=== PATIENT | male | born 1960 | race Caucasian/White ===

== ENCOUNTER 2018-03-01 19:17 | Observation (INO) ==
[2018-03-01] MEDS ORDERED: Aspirin 81 MG TAB.CHEW PO ONE (19:34)
[2018-03-01] MEDS ORDERED: *HR* Metoprolol 5 MG/5 ML VIAL IVP PRN (19:36)
--- NOTE | 2018-03-01 19:40 | Emergency Department Note ---
Disposition Clinical Impression: Atrial fibrillation with RVR, Hyperglycemia, Lung nodule Hypertension Qualifiers: Hypertension type: unspecified Qualified Code(s): I10 - Essential (primary) hypertension Disposition: Admitted As Inpatient Condition: Fair Referrals: Clarisse Amaya CNP [Primary Care Provider] - Forms: ED Satisfaction Letter Time of Disposition: 20:23 General Adult HPI - General Chief complaint: ED Chest Pain Stated complaint: chest pain luzmaria Time Seen by Provider: 03/01/18 19:22 Source: patient Mode of arrival: ambulatory Limitations: no limitations Nursing Notes Reviewed: Yes Vital Signs Reviewed: Yes - History of Present Illness HPI Narrative: 57-year-old male with history of hypertension presents for evaluation of heart palpitations. Patient's initial chief complaint said chest pain and shortness of breath however the patient denies any chest pain on my examination. Patient states he has been living with a sinus infection over the past 2 weeks. Patient states that he woke up this morning and did note some fluttering palpitations in his chest. Called his primary care doctor who told him not to go to work. Patient did go to work where his heart was noted to be in the 140s. Patient denies any syncope, chest pain or dyspnea. Patient denies any nausea vomiting or diaphoresis. Denies any history of prior heart attacks. States he does take blood pressure medications with no changes in the said medications. Patient states he does not take any blood thinners. Patient states he did have an irregular heart rhythm and palpitations in 2016 but does not recall any specific diagnosis of A. fib. Pain Scale: 2 - Related Data Home Medications Medication Instructions Recorded Confirmed Amlodipine Besylate/Benazepril 1 cap PO DAILY 03/01/18 03/01/18 [Lotrel 10-40 mg Capsule] Aspirin [Lo-Dose Aspirin EC] 81 mg PO DAILY 03/01/18 03/01/18 Atorvastatin [Lipitor] 40 mg PO HS 03/01/18 03/01/18 cloNIDine HCl [CloNIDine HCl] 0.1 mg PO BID 03/01/18 03/01/18 Allergies Allergy/AdvReac Type Severity Reaction Status Date / Time No Known Allergies Allergy Verified 03/01/18 19:19 All systems ED: reviewed and negative except as stated. Constitutional: Denies: fever Cardiovascular: Reports: palpitations. Denies: chest pain Respiratory: Denies: cough, dyspnea Gastrointestinal: Denies: abdominal pain, nausea, vomiting Past Medical History - Past Medical History Source: patient Medical history: Reports: atrial fibrillation, hyperlipidemia, hypertension Psychiatric history: Reports: no psych history - Social History Smoking Status: Never smoker Smokeless Tobacco Status: No Alcohol use: Reports: occasionally Drug use: Reports: none Physical Exam - General Limitations: no limitations General appearance: alert, in no apparent distress, obese - Head Head exam: atraumatic, normocephalic, normal inspection - Eye Eye exam: Present: normal appearance, PERRL, EOMI - ENT ENT exam: normal exam, normal oropharynx, mucous membranes moist - Neck Neck exam: Present: normal inspection - Chest Chest inspection: Present: normal inspection, symmetric chest wall rise - Respiratory Respiratory exam: Present: normal lung sounds bilaterally. Absent: respiratory distress - Cardiovascular Cardiovascular exam: Present: tachycardia, irregular rhythm. Absent: systolic murmur - Abdominal Exam Abdominal exam: Present: soft, Non-Tender - Extremities Exam Extremities exam: Present: normal inspection. Absent: pedal edema - Expanded Lower Extremity Exam Neurovascular/Tendon exam: Present: normal capillary refill - Back Exam Back exam: Present: normal inspection - Neurological Exam Neurological exam: Present: alert, CN II-XII intact - Skin Skin exam: Present: warm, dry, intact, normal color Course Course Narrative: Patient seen and examined. Patient appears to be in no acute distress. Patient does have A. fib RVR. Patient will get basic labs including a troponin as well as a chest x-ray. Initially heart rate control with Lopressor. Disposition will likely be admission for A. fib RVR. - Reevaluation(s) Reevaluation #1: Patient seen and examined. Patient's heart responded following 1 dose of Lopressor. Patient's blood pressure also improved. Patient's labs discussed at bedside. Patient does have mild elevations glucose. Patient's agreeable with admission. Time: 20:22 Reevaluation #2: Patient was updated on the XR findings and disposition. Patient family states that he has a known lung nodule that is classified as a granuloma. Time: 20:29 Vital Signs Temperature 98.2 F 03/01/18 19:19 Pulse Rate 112 03/01/18 19:19 Respiratory Rate 19 03/01/18 19:19 Blood Pressure 190/132 03/01/18 19:19 O2 Sat by Pulse Oximetry 98 03/01/18 19:19 Temperature 98.2 F 03/01/18 19:19 Pulse Rate 123 03/01/18 19:47 Respiratory Rate 20 03/01/18 19:47 Blood Pressure 165/109 03/01/18 19:47 O2 Sat by Pulse Oximetry 96 03/01/18 19:47 Oxygen Delivery Oxygen Delivery Room Air Medical Decision Making - MDM Narrative Medical decision making narrative: Patient presented for palpitations and some generalized fatigue. Denying any chest pain or dyspnea. Patient's chief complaint that was entered with chest pain and shortness of breath over the patient denied that on multiple occasions during the ED course. Patient had A. fib RVR with rates in the 140s upon arrival. Patient is also hypertensive. Patient heart rate was controlled with beta blockers. Patient was given a PO metoprolol following IV in the ED. Patient's Chads Vasc 1 and was given an ASA. Patient was noted to have menstrual finding of a lung nodule on chest x-ray. Additional testing with a CT with contrast will be obtained since there is no prior imaging for comparison. Patient does have a history of smoking in the remote past in his 20s. Patient's labs are clinically unremarkable. Mild elevation in glucose. Patient was not counseled on appropriate glycemic control weight loss and exercise. Patient will be admitted to the hospital service for continued cardiopulmonary evaluation and workup for his new onset A. fib. - Lab Data Lab results reviewed: Yes I reviewed the patient's lab results. Result diagrams: 03/01/18 19:36 03/01/18 19:36 Lab Results 03/01/18 03/01/18 03/01/18 Range/Units 19:36 19:36 19:36 WBC 8.1 (4.3-11.1) K/mcL RBC 5.70 H (4.19-5.50) M/mcL Hgb 16.5 (12.9-16.9) g/dL Hct 47.7 (37.5-50.1) % MCV 83.7 (83.0-100.0) fL MCH 28.9 (28.0-33.3) pg MCHC 34.6 (31.6-35.5) g/dL RDW 12.7 (11.5-14.5) % Plt Count 202 (140-400) K/mcL MPV 9.8 (9.4-12.4) fL Immature Gran % 0.2 (0-4) % Seg Neutrophils % 60.3 % Lymphocytes % 30.6 % Monocytes % 6.2 % Eosinophils % 2.5 % Basophils % 0.2 % Neutrophils # 4.9 (1.6-8.9) K/mcL Lymphocytes # 2.5 (0.6-4.6) K/mcL Monocytes # 0.5 (0.0-1.3) K/mcL Eosinophils # 0.2 (0.0-0.6) K/mcL Basophils # 0.0 (0.0-0.2) K/mcL Sodium 141 (136-145) mEq/L Potassium 3.8 (3.5-5.1) mEq/L Chloride 108 H (98-107) mEq/L Carbon Dioxide 22 L (23-29) mEq/L BUN 22 H (6-20) mg/dL Creatinine 1.15 (0.70-1.30) mg/dL Est GFR ( Amer) > 60 (> 60) Est GFR (Non-Af Amer) > 60 (> 60) BUN/Creatinine Ratio 19 (6-26) Glucose 130 H (70-105) mg/dL Calculated Osmolality 297 (280-300) Calcium 9.3 (8.6-10.3) mg/dL Phosphorus (2.7-4.5) mg/dL Magnesium (1.6-2.6) mg/dL Troponin I 0.03 (< 0.04) ng/mL B-Natriuretic Peptide 91 (Less than 100) pg/mL 03/01/18 Range/Units 19:36 WBC (4.3-11.1) K/mcL RBC (4.19-5.50) M/mcL Hgb (12.9-16.9) g/dL Hct (37.5-50.1) % MCV (83.0-100.0) fL MCH (28.0-33.3) pg MCHC (31.6-35.5) g/dL RDW (11.5-14.5) % Plt Count (140-400) K/mcL MPV (9.4-12.4) fL Immature Gran % (0-4) % Seg Neutrophils % % Lymphocytes % % Monocytes % % Eosinophils % % Basophils % % Neutrophils # (1.6-8.9) K/mcL Lymphocytes # (0.6-4.6) K/mcL Monocytes # (0.0-1.3) K/mcL Eosinophils # (0.0-0.6) K/mcL Basophils # (0.0-0.2) K/mcL Sodium (136-145) mEq/L Potassium (3.5-5.1) mEq/L Chloride (98-107) mEq/L Carbon Dioxide (23-29) mEq/L BUN (6-20) mg/dL Creatinine (0.70-1.30) mg/dL Est GFR ( Amer) (> 60) Est GFR (Non-Af Amer) (> 60) BUN/Creatinine Ratio (6-26) Glucose (70-105) mg/dL Calculated Osmolality (280-300) Calcium (8.6-10.3) mg/dL Phosphorus 3.2 (2.7-4.5) mg/dL Magnesium 2.1 (1.6-2.6) mg/dL Troponin I (< 0.04) ng/mL B-Natriuretic Peptide (Less than 100) pg/mL - Radiology Data Radiology results reviewed: Yes I reviewed the patient's radiology results. Chest X-Ray 03/01/18 19:34 IMPRESSION: Nodule within the right midlung which is not definitely calcified. Since no old examinations are available for comparison, evaluation with chest CT is recommended. Otherwise, no acute abnormality identified. D/ / Aly Villanueva MD / Aly Villanueva MD Interpreting Provider: Aly Villanueva MD - EKG Data EKG #1 EKG attestation: Yes I reviewed and interpreted this EKG. Rate: tachycardia Rhythm: A.Fib Her[place]ster/QRS: left axis deviation T wave inversions noted in: aVR When compared to previous EKG there are: previous EKG unavailable Interpretation: other (A. fib RVR)
[2018-03-01] MEDS ORDERED: *HR* Metoprolol 5 MG/5 ML VIAL IVP ONE (19:46)
[2018-03-01 19:48] LABS: Basophils % 0.2 %; Eosinophils # 0.2 K/mcL (0.0-0.6); Eosinophils % 2.5 %; Hematocrit 47.7 % (37.5-50.1); Hemoglobin 16.5 g/dL (12.9-16.9); Immature Granulocytes % 0.2 % (0-4); Lymphocytes # 2.5 K/mcL (0.6-4.6); Lymphocytes % 30.6 %; Mean Corpuscular HGB Conc 34.6 g/dL (31.6-35.5); Mean Corpuscular Hemoglobin 28.9 pg (28.0-33.3); Mean Corpuscular Volume 83.7 fL (83.0-100.0); Mean Platelet Volume 9.8 fL (9.4-12.4); Monocytes # 0.5 K/mcL (0.0-1.3); Monocytes % 6.2 %; Neutrophils # 4.9 K/mcL (1.6-8.9); Platelet Count 202 K/mcL (140-400); Red Cell Distribution Width 12.7 % (11.5-14.5); Segmented Neutrophils % 60.3 %
[2018-03-01] MEDS ORDERED: 0.9 % Sodium Chloride 1,000 ML IVC STA (20:06)
[2018-03-01 20:08] LABS: Magnesium 2.1 mg/dL (1.6-2.6); Phosphorous 3.2 mg/dL (2.7-4.5)
--- NOTE | 2018-03-01 20:09 | Emergency Department Note ---
Disposition Clinical Impression: Atrial fibrillation with RVR, Hyperglycemia, Lung nodule Hypertension Qualifiers: Hypertension type: unspecified Qualified Code(s): I10 - Essential (primary) hypertension Disposition: Admitted As Inpatient Condition: Fair General Adult HPI - General Chief complaint: ED Chest Pain Stated complaint: chest pain luzmaria Time Seen by Provider: 03/01/18 19:22 Source: patient Mode of arrival: ambulatory Limitations: no limitations Nursing Notes Reviewed: Yes Vital Signs Reviewed: Yes - History of Present Illness Pain Scale: 2 - Related Data Home Medications Medication Instructions Recorded Confirmed Amlodipine Besylate/Benazepril 1 cap PO DAILY 03/01/18 03/01/18 [Lotrel 10-40 mg Capsule] Aspirin [Lo-Dose Aspirin EC] 81 mg PO DAILY 03/01/18 03/01/18 Atorvastatin [Lipitor] 40 mg PO HS 03/01/18 03/01/18 RX: cloNIDine HCl [CloNIDine HCl] 0.1 mg PO BID 03/01/18 03/01/18 Allergies Allergy/AdvReac Type Severity Reaction Status Date / Time No Known Allergies Allergy Verified 03/01/18 19:19 Constitutional: Denies: fever Cardiovascular: Reports: palpitations. Denies: chest pain Respiratory: Denies: cough, dyspnea Gastrointestinal: Denies: abdominal pain, nausea, vomiting Past Medical History - Past Medical History Medical history: Reports: atrial fibrillation, hyperlipidemia, hypertension Psychiatric history: Reports: no psych history - Social History Smoking Status: Never smoker Smokeless Tobacco Status: No Alcohol use: Reports: occasionally Drug use: Reports: none Physical Exam - General Limitations: no limitations General appearance: alert, in no apparent distress, obese Course Vital Signs Temperature 98.2 F 03/01/18 19:19 Pulse Rate 112 03/01/18 19:19 Respiratory Rate 19 03/01/18 19:19 Blood Pressure 190/132 03/01/18 19:19 O2 Sat by Pulse Oximetry 98 03/01/18 19:19 Temperature 98.2 F 03/01/18 19:19 Pulse Rate 94 03/01/18 20:51 Respiratory Rate 20 03/01/18 20:51 Blood Pressure 152/99 03/01/18 20:51 O2 Sat by Pulse Oximetry 97 03/01/18 20:51 Oxygen Delivery Oxygen Delivery Room Air Medical Decision Making - Lab Data Result diagrams: 03/01/18 19:36 03/01/18 19:36 Lab Results 03/01/18 03/01/18 03/01/18 Range/Units 19:36 19:36 19:36 WBC 8.1 (4.3-11.1) K/mcL RBC 5.70 H (4.19-5.50) M/mcL Hgb 16.5 (12.9-16.9) g/dL Hct 47.7 (37.5-50.1) % MCV 83.7 (83.0-100.0) fL MCH 28.9 (28.0-33.3) pg MCHC 34.6 (31.6-35.5) g/dL RDW 12.7 (11.5-14.5) % Plt Count 202 (140-400) K/mcL MPV 9.8 (9.4-12.4) fL Immature Gran % 0.2 (0-4) % Seg Neutrophils % 60.3 % Lymphocytes % 30.6 % Monocytes % 6.2 % Eosinophils % 2.5 % Basophils % 0.2 % Neutrophils # 4.9 (1.6-8.9) K/mcL Lymphocytes # 2.5 (0.6-4.6) K/mcL Monocytes # 0.5 (0.0-1.3) K/mcL Eosinophils # 0.2 (0.0-0.6) K/mcL Basophils # 0.0 (0.0-0.2) K/mcL Sodium 141 (136-145) mEq/L Potassium 3.8 (3.5-5.1) mEq/L Chloride 108 H (98-107) mEq/L Carbon Dioxide 22 L (23-29) mEq/L BUN 22 H (6-20) mg/dL Creatinine 1.15 (0.70-1.30) mg/dL Est GFR ( Amer) > 60 (> 60) Est GFR (Non-Af Amer) > 60 (> 60) BUN/Creatinine Ratio 19 (6-26) Glucose 130 H (70-105) mg/dL Calculated Osmolality 297 (280-300) Calcium 9.3 (8.6-10.3) mg/dL Phosphorus (2.7-4.5) mg/dL Magnesium (1.6-2.6) mg/dL Troponin I 0.03 (< 0.04) ng/mL B-Natriuretic Peptide 91 (Less than 100) pg/mL TSH 1.450 (0.340-5.600) mcIU/mL 03/01/18 Range/Units 19:36 WBC (4.3-11.1) K/mcL RBC (4.19-5.50) M/mcL Hgb (12.9-16.9) g/dL Hct (37.5-50.1) % MCV (83.0-100.0) fL MCH (28.0-33.3) pg MCHC (31.6-35.5) g/dL RDW (11.5-14.5) % Plt Count (140-400) K/mcL MPV (9.4-12.4) fL Immature Gran % (0-4) % Seg Neutrophils % % Lymphocytes % % Monocytes % % Eosinophils % % Basophils % % Neutrophils # (1.6-8.9) K/mcL Lymphocytes # (0.6-4.6) K/mcL Monocytes # (0.0-1.3) K/mcL Eosinophils # (0.0-0.6) K/mcL Basophils # (0.0-0.2) K/mcL Sodium (136-145) mEq/L Potassium (3.5-5.1) mEq/L Chloride (98-107) mEq/L Carbon Dioxide (23-29) mEq/L BUN (6-20) mg/dL Creatinine (0.70-1.30) mg/dL Est GFR ( Amer) (> 60) Est GFR (Non-Af Amer) (> 60) BUN/Creatinine Ratio (6-26) Glucose (70-105) mg/dL Calculated Osmolality (280-300) Calcium (8.6-10.3) mg/dL Phosphorus 3.2 (2.7-4.5) mg/dL Magnesium 2.1 (1.6-2.6) mg/dL Troponin I (< 0.04) ng/mL B-Natriuretic Peptide (Less than 100) pg/mL TSH (0.340-5.600) mcIU/mL Attestation Statement - Attestation Attestation: Resident Attestation: I examined this patient and my medical decision making was reviewed with the Resident Physician. I agree with the documented findings, disposition and treatment plan as described except to the extent set forth below. We independently had [id number] contact with the patient. Resident Physician Dr. Clovis Myers Please see resident note for further details and disposition. Patient with past medical history of hypertension, previous paroxysmal A. fib in 2016 the lasted for approximately 2 days. Patient was unable to get in cardiology for the follow-up symptoms had already resolved. The patient has not had any issues with this until earlier today. Patient was noted to have an irregular rhythm. Has palpitations in his chest as if his heart is beating irregular. The patient was scheduled for follow-up on Tuesday for further evaluation of this. The patient was told not to go to work. He went to work and was feeling fatigued with worsening palpitations. Presents emergency department with a heart rate greater than 120. Blood pressure greater than 190. The patient has had a recent sinus infection with associated sinus congestion. Patient denies chest pressure. Triage note of dyspnea without any patient c omplaints of dyspnea. No exertional symptoms. The patient will undergo further evaluation of what is considered new-onset A. fib given the two-year gap in history from the last episode that only last for several days was not previously evaluated. Patient will undergo rate control with both fluids as well as beta blockers. Patient will likely require admission for further evaluation. Awake alert and oriented 3, no acute distress, heart irregular rate and rhythm, lungs clear to auscultation bilaterally, +1 pitting edema to the lower extremities to the mid calf.
[2018-03-01 20:12] LABS: BUN/Creatinine Ratio 19 (6-26); Blood Urea Nitrogen 22 mg/dL (6-20); Calcium 9.3 mg/dL (8.6-10.3); Carbon Dioxide 22 mEq/L (23-29); Chloride 108 mEq/L (98-107); Glucose 130 mg/dL (70-105); Osmolality,Calculated 297 (280-300); Potassium 3.8 mEq/L (3.5-5.1); Sodium 141 mEq/L (136-145); eGFR For Non-African Americans > 60 (> 60)
[2018-03-01 20:13] LABS: Troponin I 0.03 ng/mL (< 0.04)
[2018-03-01] MEDS ORDERED: Isovue-370 500 ML INFUS..BTL IV ONE (20:24)
[2018-03-02] MEDS ORDERED: *HR* Heparin 5,000 UNIT/ML VIAL IVP ONE (00:23)
[2018-03-02] MEDS ORDERED: *HR* Heparin 5,000 UNIT/ML VIAL IVP PRN ×2 (00:23→21:00)
[2018-03-02] MEDS ORDERED: Acetaminophen 325 MG TABLET PO PRN (00:23)
[2018-03-02] MEDS ORDERED: Dextrose Gel 15 GM/37.5 ML TUBE PO PRN ×2 (00:23)
[2018-03-02] MEDS ORDERED: *HR* Dextrose 50 % in Water (Syg) 50 ML SYRINGE IVP PRN (00:23)
[2018-03-02] MEDS ORDERED: Naloxone 0.4 MG/ML INJ IVP PRN (00:23)
[2018-03-02] MEDS ORDERED: D5% in Water 1,000 ML IVC PRN (00:23)
[2018-03-02] MEDS ORDERED: Heparin 25,000 UNIT/500 ML D5W 25,000 UNIT/500 ML BAG IVC SCH (00:30)
--- NOTE | 2018-03-02 00:39 | Internal Med History&Physical ---
Date of Encounter: 03/01/18 Time of Encounter: 23:35 Internal Medicine - H&P: HPI Chief complaint: palpitations Admitted From: Emergency Dept Plans for Post Hospital Care: Home History of present illness: Mr. Shannon is a 57 year old male who presents with complaints of palpitations and irregular heartbeat. He was having sinusitis problems and was due to start antibiotics today as well as [id number] cold medication/decongestants. He saw his PCP today who recommended he not go to work and start taking his medi cations. However, he went to work nonetheless. He was having worsening symptoms at work, and he was referred to ER by friends and family. He did not take his amoxicillin and/or sinus cold medicine. In the ER, he was noted to have atrial fibrillation with rapid ventricular response. He was given a dose of IV Lopressor with rate control. He was therefore admitted to hospitalist service. Given his favorable response to metoprolol, I asked the ER physician to administer a low-dose one-time oral metoprolol dose this evening. Upon my assessment of the patient, he remains rate controlled and denies any chest pain, shortness of breath, palpitations, or diaphoresis. Upon further questioning, he states he has had similar symptoms before several years ago was never formally diagnosed with atrial fibrillation. He was due to see a runstitching machine operator as an outpatient. However, by time he saw the runstitching machine operator, he was back in normal rhythm. I suspect based upon history that he likely has had par oxysmal atrial fibrillation. Upon further questioning of his and daughter, patient does snore and expresses some concern that he may have sleep apnea. He has never been formally diagnosed with sleep apnea. He does not smoke, does not drink alcohol, and he does not drink excessive caffeine. He denies illicit drug use. Family history is pertinent for atrial fibrillation, however. He also has a history of borderline diabetes/prediabetic state. Past Med Surg Social Fam HX - Past Medical History Attestation: Yes The following information was validated with the patient. Source: patient, obtained from family Medical history: hyperlipidemia, hypertension Psychiatric history: no psych history - Past Surgical History Surgical History: orthopedic, other Additional surgical history: left Knee scope - Social History Smoking Status: Never smoker Smokeless Tobacco Status: No Alcohol use: occasionally Drug use: none Occupational status: employed Current living situation: Home, With Family Activity Level: Very active Recent Out of Country Travel Within the Last 8 Weeks: No - Family History Mother Hx Family Cardiac Disorders: Yes (AFIB) Sister Hx Family Cardiac Disorders: Yes (AFIB) - Additional Family History Additional family history: + FH atrial fibrillation Internal Medicine - H&P: Meds Amlodipine Besylate/Benazepril [Lotrel 10-40 mg Capsule] 1 cap PO DAILY 03/01/18 [History] Aspirin [Lo-Dose Aspirin EC] 81 mg PO DAILY 03/01/18 [History] Atorvastatin [Lipitor] 40 mg PO HS 03/01/18 [History] cloNIDine HCl [CloNIDine HCl] 0.1 mg PO BID 03/01/18 [History] Allergy/AdvReac Type Severity Reaction Status Date / Time No Known Allergies Allergy Verified 03/01/18 19:19 - Constitutional Constitutional: no chills, no fever(s), no malaise - EENT Eyes: no blurry vision, no change in vision Ears: no ear pain, no tinnitus Nose, mouth and throat: nasal congestion, sinus pain, sinus pressure, no sore throat - Cardiovascular Cardiovascular ROS IM: irregular heart rhythm, palpitations, no chest pain, no diaphoresis, no dyspnea, no dyspnea on exertion, no lightheadedness, no paroxysmal nocturnal dyspnea, no syncope - Respiratory Respiratory: cough, no hemoptysis, no chest congestion, no excessive phlegm production, no change in phlegm color - Gastrointestinal Gastrointestinal: no abdominal pain, no diarrhea, no hematemesis, no hematochezia, no melena, no nausea, no vomiting - Genitourinary Genitourinary ROS male: no dysuria, no flank pain, no hematuria - Musculoskeletal Musculoskeletal ROS IM: no arthralgias, no back pain - Integumentary Integumentary IM: no rash, no jaundice - Neurological Neurological ROS: no disequilibrium, no dizziness, no focal weakness, no frequent falls, no headache(s) - Psychiatric Psychiatric: no anxiety, no depression - Endocrine Endocrine IM: no polydipsia, no polyuria - Allergic/Immunologic Allergic/Immunologic: no wheezing, no GI upset with certain foods - Constitutional Vitals: Temp Pulse Resp BP Pulse Ox 98.1 F 84 16 145/98 95 03/01/18 22:29 03/01/18 22:29 03/01/18 22:29 03/01/18 22:29 03/01/18 22:29 General appearance: Present: cooperative, A&O X 3, pleasant, no acute distress, answers questions appropriately Exam: see below - Head Head exam: Present: normal inspection - Eye Eye exam: Present: EOMI, PERRL. Absent: scleral icterus Pupils: Present: normal accommodation - ENT ENT exam: Present: mucous membranes dry, normal exam, normal oropharynx - Neck Neck exam general surgery: Present: full ROM, supple. Absent: tenderness, nuchal rigidity, thyromegaly - Respiratory Respiratory exam: Present: CTAB. Absent: chest wall tenderness, rales, rhonchi, wheezes - Cardiovascular Cardiovascular exam: Present: irregular rhythm, +S1, +S2. Absent: diastolic murmur, systolic murmur - GI/Abdominal GI/Abdominal exam: Present: normal bowel sounds, soft. Absent: guarding, hepatomegaly, mass, rebound, splenomegaly, tenderness - Extremities Exam Extremities exam: Present: normal capillary refill, warm, radial pulses palpable and symmetrical. Absent: calf tenderness, pedal edema, tenderness - Back Exam Back exam: Present: normal inspection. Absent: CVA tenderness (L), CVA tenderness (R) - Neurological Exam Neurological exam: Present: alert, CN II-XII intact, oriented X3, no focal deficits - Psychiatric Psychiatric exam: Present: normal affect, normal mood - Skin Skin exam: Present: dry, intact, warm Internal Med - H&P Results - Labs CBC & Chem 7: 03/01/18 19:36 03/01/18 19:36 Labs: Short CBC 03/01/18 Range/Units 19:36 WBC 8.1 (4.3-11.1) K/mcL Hgb 16.5 (12.9-16.9) g/dL Hct 47.7 (37.5-50.1) % Plt Count 202 (140-400) K/mcL Neutrophils # 4.9 (1.6-8.9) K/mcL BMP 03/01/18 19:36 Sodium 141 Potassium 3.8 Chloride 108 H Carbon Dioxide 22 L BUN 22 H Creatinine 1.15 Glucose 130 H Calcium 9.3 Cardiac Enzymes 03/01/18 Range/Units 19:36 Troponin I 0.03 (< 0.04) ng/mL - EKG Data -: EKG Interpreted by Myself - EKG Data Prior EKG available for review: no EKG comments: 03/02/18 00:43 atrial fibrillation w RVR - Impressions ITS Impressions Chest X-Ray 03/01/18 19:34 IMPRESSION: Nodule within the right midlung which is not definitely calcified. Since no old examinations are available for comparison, evaluation with chest CT is recommended. Otherwise, no acute abnormality identified. D/ / Aly Villanueva MD / Aly Villanueva MD Interpreting Provider: Aly Villanueva MD Chest CT 03/01/18 20:24 IMPRESSION: Calcified granulomas without suspicious nodule or acute process. D/ / Arturo Mccullough MD / Arturo Mccullough MD Interpreting Provider: Arturo Mccullough MD - Diagnostic Studies CT scan - chest Status: image reviewed by me (calcified granulomas/negative) - Assessment and plan (1) Atrial fibrillation with RVR Current Visit: Yes Status: Acute Assessment and plan: 1. Will continue oral Metoprolol scheduled BID and monitor on telemetry -- patient currently rate controlled. 2. Will order ECHO, trend troponins, monitor on telemetry, and check TSH. 3. Consult cardiology as he may be candidate for cardioversion. 4. Will start heparin drip per ACS protocol. 5. Patient will need stress test or LHC in the near future to rule out CAD. 6. Patient will also need outpatient sleep study to rule out FAHEEM. (2) Sinusitis Current Visit: Yes Status: Acute Assessment and plan: 1. Will start Amoxicillin as originally prescribed by PCP. 2. Avoid decongestants given new atrial fibrillation. Qualifiers: Sinusitis location: maxillary Chronicity: subacute Qualified Code(s): J01.00 - Acute maxillary sinusitis, unspecified (3) Hyperglycemia Current Visit: Yes Status: Acute Assessment and plan: 1. Will place on SSI and monitor glucose. 2. Will order A1C. 3. Patient may need oral diabetic agents at discharge. (4) Hypertension Current Visit: Yes Status: Chronic Assessment and plan: 1. Continue home meds as appropriate. 2. Monitor BP and adjust meds/dosing as necessary. Qualifiers: Hypertension type: essential hypertension Qualified Code(s): I10 - Essential (primary) hypertension (5) DVT prophylaxis Current Visit: Yes Status: Acute Assessment and plan: 1. Heparin drip per ACS protocol.
[2018-03-02 01:19] LABS: Basophils % 0.5 %; Eosinophils # 0.2 K/mcL (0.0-0.6); Eosinophils % 2.6 %; Hematocrit 45.7 % (37.5-50.1); Immature Granulocytes % 0.3 % (0-4); Lymphocytes # 2.8 K/mcL (0.6-4.6); Lymphocytes % 31.4 %; Mean Corpuscular Hemoglobin 29.3 pg (28.0-33.3); Mean Corpuscular Volume 83.5 fL (83.0-100.0); Monocytes # 0.5 K/mcL (0.0-1.3); Neutrophils # 5.2 K/mcL (1.6-8.9); Platelet Count 190 K/mcL (140-400); Red Blood Count 5.47 M/mcL (4.19-5.50); Red Cell Distribution Width 12.9 % (11.5-14.5); Segmented Neutrophils % 59.2 %
[2018-03-02 01:26] LABS: Prothrombin Time 10.8 Seconds (9.4-12.1)
[2018-03-02 01:27] LABS: Heparin anti-factor XA UFH 0.05 IU/mL (0.30-0.70)
[2018-03-02] MEDS: Amoxicillin 500 MG CAPSULE PO SCH ×4 (01:31→21:13)
[2018-03-02 01:38] LABS: Alanine Aminotransferase 25 Units/L (7-52); Albumin 4.2 g/dL (3.5-5.7); Albumin/Globulin Ratio 1.7 (1.1-2.2); Alkaline Phosphatase 89 Units/L (34-104); Aspartate Amino Transferase 18 Units/L (13-39); BUN/Creatinine Ratio 17 (6-26); Bilirubin,Total 0.7 mg/dL (0.3-1.0); Blood Urea Nitrogen 16 mg/dL (6-20); Calcium 8.9 mg/dL (8.6-10.3); Carbon Dioxide 22 mEq/L (23-29); Chloride 109 mEq/L (98-107); Chol/HDL Ratio 4.8 (0-4.9); Cholesterol 169 mg/dL (< 200); Globulin 2.5 g/dL (2.4-3.5); Glucose 136 mg/dL (70-105); HDL Cholesterol 35 mg/dL (40-59); LDL Cholesterol,Calculated 92 mg/dL (0-99); Magnesium 2.1 mg/dL (1.6-2.6); Osmolality,Calculated 297 (280-300); Potassium 3.6 mEq/L (3.5-5.1); Sodium 142 mEq/L (136-145); Total Protein 6.7 g/dL (6.4-8.9); Triglycerides 210 mg/dL (< 150); eGFR For Non-African Americans > 60 (> 60)
[2018-03-02 02:54] LABS: Estimated Average Glucose 146 mg/dl; Hemoglobin A1C 6.7 %
[2018-03-02] MEDS: amLODIPine 5 MG TABLET PO SCH (07:40)
[2018-03-02] MEDS: Lisinopril 20 MG TABLET PO SCH (07:40)
[2018-03-02] MEDS: Insulin LISPRO 300 UNITS/3 ML VIAL SQ SCH ×3 (07:41→16:06)
[2018-03-02] MEDS: Aspirin Enteric Coated 81 MG Tablet PO SCH (07:41)
[2018-03-02] MEDS: *HR* Heparin 5,000 UNIT/ML VIAL IVP PRN ×2 (07:48→14:12)
--- NOTE | 2018-03-02 12:07 | Cardiology Consult Note ---
<Jerry Kohler R - Last Filed: 03/02/18 12:01> Date of Encounter: 03/02/18 Time of Encounter: 12:02 Assessment and Plan (1) Atrial fibrillation with RVR Current Visit: Yes Status: Acute New diagnosis of A-Fib, although based on hx and symptoms, possible occurrence in the past. On Lopressor 12.5mg BID. AVG HR 92. HR at bedside is 90s-100s. Will increase Lopressor to 25mg BID. [id number] is 2--HTN and based on HGBA1C of 6.7, new diagnosis of DM. Currently on heparin gtt. Will brown check NOAC. TTE resulted--LVEF 60%. Normal right ventricular structure and function. Mild mitral regurgitation. No pulmonary hypertension. K, Mag, TSH WNL. Suspect underlying FAHEEM. Recommend outpt sleep study. Will discuss and review with Dr. Au for further recs. Discussion w patient/family: The assessment and plan as outlined above was discussed with the patient and/or family members who expressed understanding and agreement. All questions were answered. Thank you for involving us in the care of your patient. Please call with any questions. I will discuss all the above with Dr. Au and make changes as necessary. History of Present Illness Consult date: 03/02/18 Requesting physician: Jayy Black Consult reason: A-Fib Chief complaint: palpitations History of present illness: Mr. Shannon is a 57 year old male with PMH HTN, preDM and HLD that presents with complaints of palpitations. He has sinusitis and started antibiotics yesterday as well as [id number] cold medication/decongestants. In the ED he was found to be in A-Fib RVR He was given a dose of IV Lopressor with rate control. He denies any chest pain, shortness of breath, palpitations, or diaphoresis. He states he has had similar symptoms in 2016, never formally diagnosed with atrial fibrillation. Family history is pertinent for atrial fibrillation. Past Med Surg Social Fam HX - Past Medical History Medical history: hyperlipidemia, hypertension Psychiatric history: no psych history - Past Surgical History Surgical History: orthopedic, other Additional surgical history: left Knee scope - Social History Smoking Status: Never smoker Smokeless Tobacco Status: No Alcohol use: occasionally Drug use: none - Family History Mother Hx Family Cardiac Disorders: Yes (AFIB) Sister Hx Family Cardiac Disorders: Yes (AFIB) Medications and Allergies Amlodipine Besylate/Benazepril [Lotrel 10-40 mg Capsule] 1 cap PO DAILY 03/01/18 [History] Aspirin [Lo-Dose Aspirin EC] 81 mg PO DAILY 03/01/18 [History] Atorvastatin [Lipitor] 40 mg PO HS 03/01/18 [History] cloNIDine HCl [CloNIDine HCl] 0.1 mg PO BID 03/01/18 [History] Allergy/AdvReac Type Severity Reaction Status Date / Time No Known Allergies Allergy Verified 03/01/18 19:19 All Systems Review: The remainder of the systems were reviewed and are negative - Cardiovascular Cardiovascular: as per HPI, palpitations Physical Examination Vital Signs Temp Pulse Resp BP Pulse Ox 03/02/18 07:59 94 03/02/18 06:57 97.7 F 58 16 142/95 94 03/01/18 22:29 98.1 F 84 16 145/98 95 03/01/18 20:51 94 20 152/99 97 03/01/18 19:47 123 20 165/109 96 03/01/18 19:19 98.2 F 112 19 190/132 98 Intake and Output 03/01/18 03/02/18 03/02/18 23:59 07:59 15:59 Intake Total 50 / 50 Output Total 0 / 0 Balance 50 / 50 Intake: IV Fluids 50 / 50 Heparin 25,000 UNIT/500 ML D5W 50 / 50 25,000 unit In 500 ml @ 8.5 UNIT/KG/HR 20.222 mls/hr IVC . Q24H [facility] Rx#:[id number] Output: Urine 0 / 0 Other: Weight 118.955 kg Blood Glucose* 144 143 163 General: Conversant, No Apparent Distress HEENT: Atraumatic, Normocephaly, Mucus Membranes Moist Neck: No JVD, Normal carotid pulses Cardiac: Other (irregularly irregular rhythm) Lungs: Normal Breath Sounds, No Wheeze, Rales, Rhonchi Neuro: Alert and responsive, No focal deficits noted Abdomen: Soft, Non-Tender Skin: No rashes noted on visualized skin Musculoskeletal: No Chest Wall Tenderness Extremities: No Clubbing, No Cyanosis, No Edema, Normal Pulses Results 03/02/18 00:48 03/02/18 00:48 Lab Results 03/01/18 03/01/18 03/01/18 19:36 19:36 19:36 WBC 8.1 Hgb 16.5 Hct 47.7 Plt Count 202 INR Sodium 141 Potassium 3.8 Chloride 108 H Carbon Dioxide 22 L BUN 22 H Creatinine 1.15 Glucose 130 H Calcium 9.3 Magnesium Total Bilirubin AST ALT Alkaline Phosphatase Troponin I 0.03 B-Natriuretic Peptide 91 TSH 1.450 03/01/18 03/02/18 03/02/18 19:36 00:48 00:48 WBC Hgb Hct Plt Count INR 1.0 Sodium Potassium Chloride Carbon Dioxide BUN Creatinine Glucose Calcium Magnesium 2.1 Total Bilirubin AST ALT Alkaline Phosphatase Troponin I < 0.03 B-Natriuretic Peptide TSH 03/02/18 03/02/18 03/02/18 00:48 00:48 06:48 WBC 8.8 Hgb 16.0 Hct 45.7 Plt Count 190 INR Sodium 142 Potassium 3.6 Chloride 109 H Carbon Dioxide 22 L BUN 16 Creatinine 0.94 Glucose 136 H Calcium 8.9 Magnesium 2.1 Total Bilirubin 0.7 AST 18 ALT 25 Alkaline Phosphatase 89 Troponin I < 0.03 B-Natriuretic Peptide TSH Impressions Chest X-Ray 03/01/18 19:34 IMPRESSION: Nodule within the right midlung which is not definitely calcified. Since no old examinations are available for comparison, evaluation with chest CT is recommended. Otherwise, no acute abnormality identified. D/ / Aly Villanueva MD / Aly Villanueva MD Interpreting Provider: Aly Villanueva MD Chest CT 03/01/18 20:24 IMPRESSION: Calcified granulomas without suspicious nodule or acute process. D/ / Arturo Mccullough MD / Arturo Mccullough MD Interpreting Provider: Arturo Mccullough MD Echocardiogram 03/02/18 00:23 Impressions: LVEF 60%. Indeterminate diastolic function. Normal right ventricular structure and function. Mild mitral regurgitation. No pulmonary hypertension. Left Ventricular Wall Motion: Rest Echo Findings All wall segments showed normal motion. Findings: Study Quality * Technically challenging due to body habitus. ECG Findings * Atrial fibrillation. Left Ventricle * LVEF 60%. * LV wall thickness measurements not well obtained. * Indeterminate diastolic function. Right Ventricle * Normal right ventricular structure and function. Left Atrium * Normal left atrial size. Right Atrium * Normal right atrial size. Mitral Valve * Normal mitral valve structure. * No mitral stenosis. * Mild mitral regurgitation. Aortic Valve * No aortic regurgitation. * Trileaflet aortic valve. * No aortic stenosis. Tricuspid Valve * Tricuspid valve not well visualized. * Trace tricuspid regurgitation. * Estimated RA pressure is 3 mmHg. Pulmonic Valve * Pulmonic valve is not well visualized. * No pulmonic stenosis. * No pulmonic regurgitation. Pulmonary Artery * Pulmonary artery not well visualized. Aorta * Normally sized aortic root. Pericardium * There is no pericardial effusion present. Interatrial Septum * No evidence of PFO by color Doppler. IVC * Normal IVC dimensions and inspiratory collapse. Active Medications Acetaminophen (Tylenol) 650 mg PO Q6HR PRN PRN Reason: Mild Pain/Fever Stop: 09/01/18 00:24 Last Admin: 03/02/18 11:34 Dose: 650 mg Amlodipine Besylate (Norvasc) 10 mg PO DAILY [facility] Stop: 09/01/18 09:01 Last Admin: 03/02/18 07:40 Dose: 10 mg Amoxicillin (Amoxil) 500 mg PO TID [facility]; Protocol Stop: 09/01/18 01:16 Last Admin: 03/02/18 07:40 Dose: 500 mg Aspirin (Aspirin Ec) 81 mg PO DAILY [facility] Stop: 09/01/18 09:01 Last Admin: 03/02/18 07:41 Dose: 81 mg Atorvastatin Calcium (Lipitor) 40 mg PO HS [facility] Stop: 09/01/18 21:01 Dextrose/Water (Dextrose 50% (Syg)) 25 ml IVP AD PRN PRN Reason: Hypoglycemia Stop: 09/01/18 00:24 Glucagon (Glucagen) 1 mg IM ONCE PRN PRN Reason: Hypoglycemia Stop: 09/01/18 00:24 Glucose (Gluctose) 15 gm PO ONCE PRN PRN Reason: Hypoglycemia Stop: 09/01/18 00:24 Glucose (Gluctose) 30 gm PO ONCE PRN PRN Reason: Hypoglycemia Stop: 09/01/18 00:24 Heparin Sodium (Porcine) (Heparin) 4,000 unit IVP Q6HR PRN PRN Reason: SEE COMMENTS Stop: 09/01/18 00:24 Heparin Sodium (Porcine) (Heparin) 2,000 unit IVP Q6H PRN PRN Reason: SEE COMMENTS Stop: 09/01/18 00:24 Last Admin: 03/02/18 07:48 Dose: 2,000 unit Dextrose (Dextrose 5%) 1,000 mls @ 100 mls/hr IVC .Q10H PRN PRN Reason: HYPOGLYCEMIA Stop: 09/01/18 00:24 Heparin Sodium/Dextrose (Heparin 25,000 Unit/500 Ml D5w) 25,000 unit in 500 mls @ 20.222 mls/hr IVC .Q24H [facility]; Protocol Stop: 09/01/18 00:31 Last Titration: 03/02/18 07:49 Dose: 10.5 unit/kg/hr, 24.981 mls/hr Insulin Human Lispro (Humalog) 0 units SQ TIDAC [facility]; Protocol Stop: 09/01/18 07:31 Last Admin: 03/02/18 11:53 Dose: 2 units Lisinopril (Zestril) 40 mg PO DAILY [facility] Stop: 09/01/18 09:01 Last Admin: 03/02/18 07:40 Dose: 40 mg Metoprolol Tartrate (Lopressor) 5 mg IVP Q5MIN PRN PRN Reason: Tachycardia HR>100 Stop: 03/03/18 19:46 Last Admin: 03/01/18 19:50 Dose: 5 mg Metoprolol Tartrate (Lopressor) 12.5 mg PO BID [facility] Stop: 09/01/18 09:01 Last Admin: 03/02/18 07:40 Dose: 12.5 mg Naloxone HCl (Narcan) 0.4 mg IVP Q2MIN PRN PRN Reason: SEE COMMENTS Stop: 09/01/18 00:24 - Imaging and Cardiology Echo: report reviewed - EKG Interpretation EKG results cardiology: personally reviewed (A-fib RVR 122.), other (12 hr tele AVG HR 92, A-Fib) Consult Discharge Plan - Plan Referrals: Clarisse Amaya, [facility] [Primary Care Provider] - <Alfredo Au - Last Filed: 03/02/18 15:29> Date of Encounter: 03/02/18 - Attending Attestation Patient was seen and evaluated independently by me. Findings, assessment and plan were discussed at length with patient, questions answered. Agree with nurse practitioner's/resident's documentation. Addition as follows, 57 yoCM ho HTN, DM, possible PAF 2 yrs ago with spontaneous conversion. P.w sinusitis followed by palpitation. Found in Afib RVR, rate ctr ok on BB. TTE EF 60%, mild MR NAD, CTA, IR, no edema Hb nl, CR nl A: PAF, RVR, C score 2 sinusitis P: rate ctr for now NOAC f/u card clinic Alfredo Au MD, PhD Assessment and Plan Discussion w patient/family: The assessment and plan as outlined above was discussed with the patient and/or family members who expressed understanding and agreement. All questions were answered. Thank you for involving us in the care of your patient. Please call with any questions. History of Present Illness History of present illness: Mr. Shannon is a 57 year old male All Systems Review: The remainder of the systems were reviewed and are negative Physical Examination Vital Signs, Last 4 Hours Pulse BP 03/02/18 13:26 71 173/97 Results 03/02/18 00:48 03/02/18 00:48 Lab Results 03/01/18 03/01/18 03/01/18 19:36 19:36 19:36 WBC 8.1 Hgb 16.5 Hct 47.7 Plt Count 202 INR Sodium 141 Potassium 3.8 Chloride 108 H Carbon Dioxide 22 L BUN 22 H Creatinine 1.15 Glucose 130 H Calcium 9.3 Magnesium Total Bilirubin AST ALT Alkaline Phosphatase Troponin I 0.03 B-Natriuretic Peptide 91 TSH 1.450 03/01/18 03/02/18 03/02/18 19:36 00:48 00:48 WBC Hgb Hct Plt Count INR 1.0 Sodium Potassium Chloride Carbon Dioxide BUN Creatinine Glucose Calcium Magnesium 2.1 Total Bilirubin AST ALT Alkaline Phosphatase Troponin I < 0.03 B-Natriuretic Peptide TSH 03/02/18 03/02/18 03/02/18 00:48 00:48 06:48 WBC 8.8 Hgb 16.0 Hct 45.7 Plt Count 190 INR Sodium 142 Potassium 3.6 Chloride 109 H Carbon Dioxide 22 L BUN 16 Creatinine 0.94 Glucose 136 H Calcium 8.9 Magnesium 2.1 Total Bilirubin 0.7 AST 18 ALT 25 Alkaline Phosphatase 89 Troponin I < 0.03 B-Natriuretic Peptide TSH
--- NOTE | 2018-03-02 12:52 | Internal Med Progress Note ---
<Parish Ogden Spencer - Last Filed: 03/02/18 12:50> Hospitalist Progress Note - Encounter Date of Encounter: 03/02/18 Time of Encounter: 07:05 - Subjective Interval History: Laying comfortably in bed. Says he feels palpitations still but less. He denies blurry vision, diplopia, dizzy/lightheadedness, chest pain, sob, diaphoresis, presyncope/syncope, or N/V. - Exam Vitals: Temp Pulse Resp BP Pulse Ox 97.7 F 58 16 142/95 94 03/02/18 06:57 03/02/18 06:57 03/02/18 06:57 03/02/18 06:57 03/02/18 07:59 Exam: General: Alert, no acute distress or signs toxicity HEENT: Atraumatic/normocephalic, EOMI, PERRL, dry mucous embranes Neck: Supple, full ROM, no lymphadenopathy Cardiac: Regular rate, irregularly irregular rhythm, S1/S2+, no murmur, heaves, thrills, appreciated. Radial pulses 2+ bilat, no edema Lungs: Normal resp effort, good air movement, CTAB, no wheezes, rhonchi, rales appreciated. Abdomen: Soft nontender, nondistended, no rebound, guarding, or rigidity. Skin: warm, dry, intact MSK: No clubbing Neuro: CN grossly intact, no focal neuro deficits Psych: Normal affect - Assessment and Plan (1) Atrial fibrillation with RVR Current Visit: Yes Status: Acute Assessment and Plan: New diagnosis of Afib. Had similar presentation in 2016 that was NSR when followed up with cards. -[id number] 2 -On heparin infusion -Checking DOAC pricing -TTE 03/02/18 EF 60%, mild MR, no PH -TSH, Mg normal, K 3.6, 40meq K today -Trop neg x2 -Likely need outpatient stress and sleep study -HR as low as 50's this morning -Cards increased metoprolol dose from 12.5mg BID to 25mg BID (2) Hypertension Current Visit: Yes Status: Chronic Assessment and Plan: -Continue home meds -BP improved, 142/95 most recent -Monitor BP and adjust meds/dosing as necessary. (3) Hyperglycemia Current Visit: Yes Status: Acute Assessment and Plan: -On SSI and monitor glucose. -A1C 6.7 -Glucose 136 today -F/u with PCP for likely oral hyperantiglycemic at il (4) Sinusitis Current Visit: Yes Status: Acute Assessment and Plan: -Continue amoxicillin as originally prescribed by PCP. -Avoid decongestants given new atrial fibrillation. DVT Prophylaxis: Heparin infusion - Time Spent with Patient Total time spent is greater than 50% in coordination of care (as documented) at patient's floor/unit and/or counseling patient: less than 15 minutes Plan of Care Discussed with: patient Internal Medicine: Result - Labs CBC & Chem 7: 03/02/18 00:48 03/02/18 00:48 Labs: Short CBC 03/01/18 03/02/18 Range/Units 19:36 00:48 WBC 8.1 8.8 (4.3-11.1) K/mcL Hgb 16.5 16.0 (12.9-16.9) g/dL Hct 47.7 45.7 (37.5-50.1) % Plt Count 202 190 (140-400) K/mcL Neutrophils # 4.9 5.2 (1.6-8.9) K/mcL BMP 03/01/18 03/02/18 19:36 00:48 Sodium 141 142 Potassium 3.8 3.6 Chloride 108 H 109 H Carbon Dioxide 22 L 22 L BUN 22 H 16 Creatinine 1.15 0.94 Glucose 130 H 136 H Calcium 9.3 8.9 Cardiac Enzymes 03/01/18 03/02/18 03/02/18 Range/Units 19:36 00:48 06:48 Troponin I 0.03 < 0.03 < 0.03 (< 0.04) ng/mL Liver Function 03/02/18 Range/Units 00:48 Total Bilirubin 0.7 (0.3-1.0) mg/dL AST 18 (13-39) Units/L ALT 25 (7-52) Units/L Alkaline Phosphatase 89 (34-104) Units/L Albumin 4.2 (3.5-5.7) g/dL - ABG Interpretation ABG results: PT/INR, D-dimer PT 10.8 Seconds (9.4-12.1) 03/02/18 00:48 - Impressions Impressions Chest X-Ray 03/01/18 19:34 IMPRESSION: Nodule within the right midlung which is not definitely calcified. Since no old examinations are available for comparison, evaluation with chest CT is recommended. Otherwise, no acute abnormality identified. D/ / Aly Villanueva MD / Aly Villanueva MD Interpreting Provider: Aly Villanueva MD Chest CT 03/01/18 20:24 IMPRESSION: Calcified granulomas without suspicious nodule or acute process. D/ / Arturo Mccullough MD / Arturo Mccullough MD Interpreting Provider: Arturo Mccullough MD Echocardiogram 03/02/18 00:23 Impressions: LVEF 60%. Indeterminate diastolic function. Normal right ventricular structure and function. Mild mitral regurgitation. No pulmonary hypertension. Left Ventricular Wall Motion: Rest Echo Findings All wall segments showed normal motion. Findings: Study Quality * Technically challenging due to body habitus. ECG Findings * Atrial fibrillation. Left Ventricle * LVEF 60%. * LV wall thickness measurements not well obtained. * Indeterminate diastolic function. Right Ventricle * Normal right ventricular structure and function. Left Atrium * Normal left atrial size. Right Atrium * Normal right atrial size. Mitral Valve * Normal mitral valve structure. * No mitral stenosis. * Mild mitral regurgitation. Aortic Valve * No aortic regurgitation. * Trileaflet aortic valve. * No aortic stenosis. Tricuspid Valve * Tricuspid valve not well visualized. * Trace tricuspid regurgitation. * Estimated RA pressure is 3 mmHg. Pulmonic Valve * Pulmonic valve is not well visualized. * No pulmonic stenosis. * No pulmonic regurgitation. Pulmonary Artery * Pulmonary artery not well visualized. Aorta * Normally sized aortic root. Pericardium * There is no pericardial effusion present. Interatrial Septum * No evidence of PFO by color Doppler. IVC * Normal IVC dimensions and inspiratory collapse. Consult Discharge Plan - Plan Referrals: Clarisse Amaya, GEOSPATIAL SPECIALIST [Primary Care Provider] - <Amber Moreno M - Last Filed: 03/02/18 15:55> Hospitalist Progress Note - Encounter Date of Encounter: 03/02/18 - Exam Vitals: Temp Pulse Resp BP Pulse Ox 97.7 F 71 16 173/97 94 03/02/18 06:57 03/02/18 13:26 03/02/18 06:57 03/02/18 13:26 03/02/18 07:59 - Assessment and Plan (1) Atrial fibrillation with RVR Current Visit: Yes Status: Acute (2) Hypertension Current Visit: Yes Status: Chronic (3) Hyperglycemia Current Visit: Yes Status: Acute (4) Sinusitis Current Visit: Yes Status: Acute - Time Spent with Patient Total time spent is greater than 50% in coordination of care (as documented) at patient's floor/unit and/or counseling patient: Internal Medicine: Result - Labs CBC & Chem 7: 03/02/18 00:48 03/02/18 00:48 Labs: Short CBC 03/01/18 03/02/18 Range/Units 19:36 00:48 WBC 8.1 8.8 (4.3-11.1) K/mcL Hgb 16.5 16.0 (12.9-16.9) g/dL Hct 47.7 45.7 (37.5-50.1) % Plt Count 202 190 (140-400) K/mcL Neutrophils # 4.9 5.2 (1.6-8.9) K/mcL BMP 03/01/18 03/02/18 19:36 00:48 Sodium 141 142 Potassium 3.8 3.6 Chloride 108 H 109 H Carbon Dioxide 22 L 22 L BUN 22 H 16 Creatinine 1.15 0.94 Glucose 130 H 136 H Calcium 9.3 8.9 Cardiac Enzymes 03/01/18 03/02/18 03/02/18 Range/Units 19:36 00:48 06:48 Troponin I 0.03 < 0.03 < 0.03 (< 0.04) ng/mL Liver Function 03/02/18 Range/Units 00:48 Total Bilirubin 0.7 (0.3-1.0) mg/dL AST 18 (13-39) Units/L ALT 25 (7-52) Units/L Alkaline Phosphatase 89 (34-104) Units/L Albumin 4.2 (3.5-5.7) g/dL - ABG Interpretation ABG results: PT/INR, D-dimer PT 10.8 Seconds (9.4-12.1) 03/02/18 00:48 - Impressions Impressions Chest X-Ray 03/01/18 19:34 IMPRESSION: Nodule within the right midlung which is not definitely calcified. Since no old examinations are available for comparison, evaluation with chest CT is recommended. Otherwise, no acute abnormality identified. D/ / Aly Villanueva MD / Aly Villanueva MD Interpreting Provider: Aly Villanueva MD Chest CT 03/01/18 20:24 IMPRESSION: Calcified granulomas without suspicious nodule or acute process. D/ / Arturo Mccullough MD / Arturo Mccullough MD Interpreting Provider: Arturo Mccullough MD Echocardiogram 03/02/18 00:23 Impressions: LVEF 60%. Indeterminate diastolic function. Normal right ventricular structure and function. Mild mitral regurgitation. No pulmonary hypertension. Left Ventricular Wall Motion: Rest Echo Findings All wall segments showed normal motion. Findings: Study Quality * Technically challenging due to body habitus. ECG Findings * Atrial fibrillation. Left Ventricle * LVEF 60%. * LV wall thickness measurements not well obtained. * Indeterminate diastolic function. Right Ventricle * Normal right ventricular structure and function. Left Atrium * Normal left atrial size. Right Atrium * Normal right atrial size. Mitral Valve * Normal mitral valve structure. * No mitral stenosis. * Mild mitral regurgitation. Aortic Valve * No aortic regurgitation. * Trileaflet aortic valve. * No aortic stenosis. Tricuspid Valve * Tricuspid valve not well visualized. * Trace tricuspid regurgitation. * Estimated RA pressure is 3 mmHg. Pulmonic Valve * Pulmonic valve is not well visualized. * No pulmonic stenosis. * No pulmonic regurgitation. Pulmonary Artery * Pulmonary artery not well visualized. Aorta * Normally sized aortic root. Pericardium * There is no pericardial effusion present. Interatrial Septum * No evidence of PFO by color Doppler. IVC * Normal IVC dimensions and inspiratory collapse. - Attending Attestation I examined this patient and my medical decision-making was reviewed with the Resident Physician Dr Ogden. I agree with the documented findings, disposition and treatment plan as described except to the extent set forth below/addl details below. Mr Shannon was admitted for treatment of new dx afib with rvr. awake, alert, no cp, + palpitions. no assoicated sob, dizziness, presyncope or syncope. + sinus pressure and pain with yellow nasal discharge. gen- alert, awake,appears stated age cv- reg rate and irreg/irreg rhythm, normal s1,s2, no murmurs appreciated, no le edema, no jvd lungs- ctabl, no wheezing, rhonchi or crackles, normal resp effort on ra abd- soft, non tender, non distended, + bs neuro- AAOx3 Afib RVR, new diagnosis, now rate controlled Afib-, chadsvasc 2-hep gtt and plan to transition to oral AC, cards following, lopressor BID and monitor HR as upper 50s this morning after am dose, brown check noac -regarding work up for cause- may be related to sinus infection, fam hx of afib, risk stratify for cad with + dm a1c 6.7, dyspilidemia on lipid panel and + obesity and htn, tsh wnl -trops neg and ekg without acute ischemic changes, TTE resulted LVEF 60%. Normal right ventricular structure and function. Mild mitral regurgitation. No pulmonary hypertension. Sinus Infection - cont oral abx, symptomatic treatment HTN, bp elevated above goal max today thus far 173/97- will require outpt fu, outpt sleep study to rule out FAHEEM, cont norvasc, lisinopril, lopressor uptitrated today, cont to monitor New dx DM, a1c 6.7- discussed with pt, SSI while inpt, he will fu with pcp upon dc to discuss lifestyle modifications vs initiation or oral agent vte ppx hep gtt <Parish Ogden - Last Filed: 03/02/18 12:50> (2) Hypertension Qualifiers: Hypertension type: essential hypertension Qualified Code(s): I10 - Essential (primary) hypertension (4) Sinusitis Qualifiers: Sinusitis location: maxillary Chronicity: subacute Qualified Code(s): J01.00 - Acute maxillary sinusitis, unspecified <Amber Moreno - Last Filed: 03/02/18 15:55> (2) Hypertension Qualifiers: Hypertension type: essential hypertension Qualified Code(s): I10 - Essential (primary) hypertension (4) Sinusitis Qualifiers: Sinusitis location: maxillary Chronicity: subacute Qualified Code(s): J01.00 - Acute maxillary sinusitis, unspecified
[2018-03-02] MEDS ORDERED: Melatonin 3 MG TABLET PO PRN (12:58)
[2018-03-02] MEDS ORDERED: Ibuprofen 600 MG TABLET PO ONE (13:37)
--- NOTE | 2018-03-02 16:17 | Event Note ---
Date of Encounter: 03/02/18 Time of Encounter: 16:13 - Cardiology Event Note TTE EF preserved, mild MR. [place] check on Eliquis 5mg BID was $35/month. Pt states this is affordable. Will start Eliquis tonight and stop heparin gtt. HR 70s-low 100s. BP 170s systolic. Will increase Lopressor to 50mg BID. Re-evaluate in AM. If rate controlled overnight, plan to sign off tomorrow with outpt EP follow-up.
--- NOTE | 2018-03-02 21:04 | Electrocardiograph Report ---
[address] [address] Test Date: 2018-03-01 Pat Name: Jamari Shannon Department: EXAM4 Room: 2A37 Gender: M Senior Database Programmer: : [id number] Requested By: Clovis Myers Order Number: [id number] Reading MD: Mackenzie Espitia Measurements Intervals [place] Rate: 122 P: [place]: QRS: -58 QRSD: 94 T: 30 QT: 320 QTc: 456 Interpretive Statements Atrial fibrillation Left anterior fascicular block Borderline ST depression, lateral leads Electronically Signed On 03-02-2018 21:03:06 EDT by Mackenzie Espitia
[2018-03-02] MEDS: Apixaban 5 MG TABLET PO SCH (21:13)
[2018-03-03 03:23] LABS: Hematocrit 52.3 % (37.5-50.1); Mean Corpuscular HGB Conc 34.2 g/dL (31.6-35.5); Mean Corpuscular Hemoglobin 28.9 pg (28.0-33.3); Mean Corpuscular Volume 84.4 fL (83.0-100.0); Mean Platelet Volume 9.6 fL (9.4-12.4); Platelet Count 226 K/mcL (140-400); Red Cell Distribution Width 12.7 % (11.5-14.5)
[2018-03-03 03:40] LABS: BUN/Creatinine Ratio 15 (6-26); Blood Urea Nitrogen 16 mg/dL (6-20); Calcium 9.3 mg/dL (8.6-10.3); Carbon Dioxide 23 mEq/L (23-29); Chloride 105 mEq/L (98-107); Glucose 144 mg/dL (70-105); Osmolality,Calculated 292 (280-300); Potassium 3.8 mEq/L (3.5-5.1); Sodium 139 mEq/L (136-145); eGFR For Non-African Americans > 60 (> 60)
[2018-03-03 03:45] LABS: Hemoglobin 17.9 g/dL (12.9-16.9)
[2018-03-03] MEDS: amLODIPine 5 MG TABLET PO SCH (08:47)
[2018-03-03] MEDS: Apixaban 5 MG TABLET PO SCH (08:47)
[2018-03-03] MEDS: Amoxicillin 500 MG CAPSULE PO SCH (08:47)
[2018-03-03] MEDS: Aspirin Enteric Coated 81 MG Tablet PO SCH (08:47)
[2018-03-03] MEDS: Lisinopril 20 MG TABLET PO SCH (08:48)
[2018-03-03] MEDS: Insulin LISPRO 300 UNITS/3 ML VIAL SQ SCH ×2 (09:04→11:41)
--- NOTE | 2018-03-03 09:20 | Discharge Summary ---
<Parish Ogden Spencer - Last Filed: 03/03/18 12:25> - NOTES TO OUTPATIENT PROVIDER Notes to Outpatient Provider: Admitted 03/01/18 with new onset Afib RVR. Metoprolol titrated up to 50mg BID at which point he is rate controlled on. PO anticoagulation started with apixaban. Will be following up with cards as outpt. Will need outpt sleep study for FAHEEM. A1C at admission 6.7%, will f/u with PCP for oral antihyperglycemics along with antihypertensive med monitoring at hi. Orders not resulted at time of discharge: Pending orders 03/02/18 06:00 ECG 12 lead ECG [ECG] AM 0600 Date of Encounter: 03/03/18 Time of Encounter: 08:00 - Discharge Diagnosis (1) Atrial fibrillation with RVR Priority: Primary Status: Acute Assessment and Plan: New diagnosis of Afib. Had similar presentation in 2016 that was NSR when followed up with cards. -[id number] -Heparin infusion transitioned to apixaban -TTE 03/02/18 EF 60%, mild MR, no PH -TSH, Mg normal, K 3.8 -Trop neg x3 -Likely need outpatient stress and sleep study -Rate controlled with metoprolol 50mg BID -Cards followup at hi (2) Hypertension Priority: Secondary Status: Chronic Assessment and Plan: -Continue home meds -BP improved, 128/75 most recent -Monitor BP and adjust meds/dosing as necessary. Qualifiers: Hypertension type: essential hypertension Qualified Code(s): I10 - Essential (primary) hypertension (3) Hyperglycemia Priority: Secondary Status: Acute Assessment and Plan: -On SSI and monitor glucose. -A1C 6.7 -Glucose 144 today -F/u with PCP for likely oral hyperantiglycemic at hi (4) Sinusitis Priority: Secondary Status: Acute Assessment and Plan: -Continue amoxicillin as originally prescribed by PCP. -Avoid decongestants given new atrial fibrillation. Qualifiers: Sinusitis location: maxillary Chronicity: subacute Qualified Code(s): J01.00 - Acute maxillary sinusitis, unspecified Hospital course: Mr. Shannon is a 57 year old male who presented with complaints of palpitations and irregular heartbeat. He was having sinusitis problems and was due to start antibiotics today as well as [id number] cold medication/decongestants. He saw his PCP today who recommended he not go to work and start taking his medications. However, he went to work nonetheless. He was having worsening symp toms at work, and he was referred to ER by friends and family. He did not take his amoxicillin and/or sinus cold medicine. In the ED, he was noted to have atrial fibrillation with rapid ventricular response. He was given a dose of IV Lopressor with rate control. He was therefore admitted to hospitalist service. He was started on heparin infusion as [id number] which transitioned to PO apixaban. Metoprolol titrated till rate controlled at 50mg BID. TTE 03/02/18 EF 60%, mild MR, no PH. TSH, Mg normal, K 3.8, trop neg x3. Was hyperglycemic in ED, A1C found to be 6.7% on no antihyperglycemics. Will need DM evaluation for antihyperglycemic needs with PCP. HTN improved with restart of home meds. Will further need outpt sleep study for probable underlying FAHEEM and cards f/u. Discharge discussed with: patient - Time Spent with Patient Total time spent providing and/or coordinating discharge services: Less than 30 minutes - Discharge Medications Prescriptions: Apixaban [Eliquis] 5 mg PO BID 30 Days #30 tablet Lisinopril [Zestril] 40 mg PO DAILY 30 Days #60 tablet Metoprolol [Lopressor] 50 mg PO BID 30 Days #60 tablet Home Medications: Amlodipine Besylate/Benazepril [Lotrel 10-40 mg Capsule] 1 cap PO DAILY 03/01/18 [History] Aspirin [Lo-Dose Aspirin EC] 81 mg PO DAILY 03/01/18 [History] Atorvastatin [Lipitor] 40 mg PO HS 03/01/18 [History] cloNIDine HCl [CloNIDine HCl] 0.1 mg PO BID 03/01/18 [History] Amoxicillin [Amoxil] 500 mg PO TID capsule 03/03/18 [Rx] Apixaban [Eliquis] 5 mg PO BID 30 Days #30 tablet 03/03/18 [Rx] Lisinopril [Zestril] 40 mg PO DAILY 30 Days #60 tablet 03/03/18 [Rx] Metoprolol [Lopressor] 50 mg PO BID 30 Days #60 tablet 03/03/18 [Rx] Allergies/Adverse Reactions: Allergy/AdvReac Type Severity Reaction Status Date / Time No Known Allergies Allergy Verified 03/01/18 19:19 Date of admission: 03/01/18 20:49 Primary care physician: Clarisse Amaya Consults: 03/02/18 00:26 Consult to Physician [CONS] Routine Consulting Provider: Alfredo Au Reason for Consult: new/paroxysmal atrial fib/RVR Call Completed: No Discharging clinician: Parish Ogden Anticipated date of discharge: 03/03/18 - Constitutional Vitals: Temp Pulse Resp BP Pulse Ox 97.7 F 76 16 128/75 96 03/03/18 07:23 03/03/18 07:23 03/03/18 07:23 03/03/18 07:23 03/03/18 07:23 Exam: General: Alert, no acute distress or signs toxicity HEENT: Atraumatic/normocephalic, EOMI, PERRL, moist mucous embranes Neck: Supple, full ROM, no lymphadenopathy Cardiac: Regular rate, irregularly irregular rhythm, S1/S2+, no murmur, heaves, thrills, appreciated. Radial pulses 2+ bilat, no edema Lungs: Normal resp effort, good air movement, CTAB, no wheezes, rhonchi, rales appreciated. Abdomen: Soft nontender, nondistended, no rebound, guarding, or rigidity. Skin: warm, dry, intact MSK: No clubbing Neuro: CN grossly intact, no focal neuro deficits Psych: Normal affect - Patient Status Disposition: Home, Self-Care Condition: Good Functional capacity at discharge: independent ambulation Overall status at discharge: patient is back to baseline - Discharge Instructions Instructions: Metoprolol (By mouth), Lisinopril (By mouth), Apixaban (By mouth) Follow Up With: Clarisse Amaya, JF [Primary Care Provider] - Alfredo Au MD [Non-Partnered Physician] - - Diet and Activity Activity: increase activity as tolerated Diet: diabetic diet <Amber Moreno - Last Filed: 03/03/18 14:36> Orders not resulted at time of discharge: Pending orders 03/02/18 06:00 ECG 12 lead ECG [ECG] AM 0600 Date of Encounter: 03/03/18 - Discharge Diagnosis (1) Atrial fibrillation with RVR Status: Acute (2) Hypertension Status: Chronic Qualifiers: Hypertension type: essential hypertension Qualified Code(s): I10 - Essential (primary) hypertension (3) Hyperglycemia Status: Acute (4) Sinusitis Status: Acute Qualifiers: Sinusitis location: maxillary Chronicity: subacute Qualified Code(s): J01.00 - Acute maxillary sinusitis, unspecified Hospital course: Mr. Shannon is a 57 year old male - Time Spent with Patient Total time spent providing and/or coordinating discharge services: Less than 30 minutes (25 min) Date of admission: 03/01/18 20:49 Primary care physician: Clarisse Amaya Consults: 03/02/18 00:26 Consult to Physician [CONS] Routine Consulting Provider: Alfredo Au Reason for Consult: new/paroxysmal atrial fib/RVR Call Completed: No - Constitutional Vitals: Temp Pulse Resp BP Pulse Ox 97.8 F 64 16 145/74 95 03/03/18 11:07 03/03/18 11:07 03/03/18 11:07 03/03/18 11:07 03/03/18 11:07 - Attending Attestation I examined this patient and my medical decision-making was reviewed with the Resident Physician Dr Ogden. I agree with the documented findings, disposition and treatment plan as described except to the extent set forth below/addl details below. Mr Shannon was admitted for treatment of new dx afib with rvr. Seen and eval by cards. Will require outpt cards fu which is being set up by cardiology, stress test outpt with them, and outpt sleep study with PCP. HR and BP at goal with addition of BB and lisinopril. New diabetes mellitus with a1c 6.7 and discussed in detail with pt and his and will fu with pcp to determine outpt medication regimen vs diet/lifestyle modifications. awake, alert, no cp, + palpitations. no presyncope. ambulating without difficulty. educated on diabetic diet and PCP follow up provided to pt and his spouse present . + sinus pressure and pain beginning to improve. no fevers or chills. eager for dc to home and all questions answered. gen- alert, awake,appears stated age cv- reg rate and irreg/irreg rhythm, normal s1,s2, no murmurs appreciated, no le edema lungs- ctabl, no wheezing, rhonchi or crackles, normal resp effort on ra neuro- AAOx3 Afib RVR, new diagnosis, now rate controlled Afib-, chadsvasc 2-NOAC, lopressor BID may be related to sinus infection and decongestant prescribed by pcp fam hx of afib risk stratify for cad with + dm a1c 6.7, dyspilidemia on lipid panel and + obesity and htn, tsh wnl -trops neg and ekg without acute ischemic changes, TTE resulted LVEF 60%. Normal right ventricular structure and function. Mild mitral regurgitation. No pulmonary hypertension. -cards setting up outpt EP follow up and likely outpt stress test will be required with them Sinus Infection - cont amoxicillin as prescribed by pcp, pt has at home, to complete 7d course, symptomatic treatment, cautioned as to what types of meds he cannot use with afib HTN, improved BPs -will require outpt fu, outpt sleep study to rule out FAHEEM, cont norvasc, lisinopril, lopressor New dx DM, a1c 6.7- discussed with pt, SSI while inpt, he will fu with pcp upon dc to discuss lifestyle modifications vs initiation or oral agent
--- NOTE | 2018-03-03 09:49 | Cardiology Progress Note ---
Date of Encounter: 03/03/18 Time of Encounter: 09:44 Assessment and Plan (1) Atrial fibrillation with RVR Current Visit: Yes Status: Acute New diagnosis of A-Fib, although based on hx and symptoms, possible occurrence in the past. Started on Lopressor and has been uptitrated to 50mg BID. AVG HR 83. Rate controlled. [id number] is 2--HTN and based on HGBA1C of 6.7, new diagnosis of DM. [place] check on Eliquis $35/month, affordable. Started Eliquis 5mg BID. TTE resulted--LVEF 60%. Normal right ventricular structure and function. Mild mitral regurgitation. No pulmonary hypertension. K, Mag, TSH WNL. Suspect underlying FAHEEM. Recommend outpt sleep study. Consider outpt stress test. Cardiology signing off. Reconsult PRN. Will coordinate outpt EP follow-up. Discussion w patient/family: The assessment and plan as outlined above was discussed with the patient and/or family members who expressed understanding and agreement. All questions were answered. Thank you for involving us in the care of your patient. Please call w ith any questions. I will discuss all the above with Dr. Silverio and make changes as necessary. Subjective Principal diagnosis: A-Fib Interval history: No acute cardiac complaints. Rate controlled on Lopressor 50mg BID. 12 hr tele A VG HR 83, A-Fib. Eliquis started yesterday evening for AC. TTE EF is preserved. Objective Vital Signs, Last 4 Hours Temp Pulse Resp BP Pulse Ox 03/03/18 07:23 97.7 F 76 16 128/75 96 Vital Signs Temp Pulse Resp BP Pulse Ox 03/03/18 07:23 97.7 F 76 16 128/75 96 03/03/18 04:34 97.7 F 94 17 127/83 97 03/02/18 23:31 98.3 F 73 17 148/77 94 03/02/18 19:34 98.5 F 82 16 143/83 96 03/02/18 15:28 98.4 F 79 20 172/93 96 03/02/18 13:26 71 173/97 Intake and Output 03/02/18 03/03/18 03/03/18 23:59 07:59 15:59 Intake Total 144.6 / 144.6 Balance 144.6 / 144.6 Intake: IV Fluids 144.6 / 144.6 Heparin 25,000 UNIT/500 ML D5W 144.6 / 144.6 25,000 unit In 500 ml @ 8.5 UNIT/KG/HR 20.222 mls/hr IVC . Q24H ELISHA Rx#:[id number] Other: # Voids 1 # Bowel Movements 1 Weight 117.39 kg Blood Glucose* 139 145 Patient Weight 03/03/18 23:59 Weight 117.39 kg General: Conversant, No Apparent Distress HEENT: Atraumatic, Normocephaly, Mucus Membranes Moist Neck: No JVD, Normal carotid pulses Cardiac: Other (irregularly irregular) Lungs: Normal Breath Sounds, No Wheeze, Rales, Rhonchi Neuro: Alert and responsive, No focal deficits noted Abdomen: Soft, Non-Tender Skin: No rashes noted on visualized skin Musculoskeletal: No Chest Wall Tenderness Extremities: No Clubbing, No Cyanosis, No Edema, Normal Pulses Results 03/03/18 03:02 03/03/18 03:02 Lab Results 03/03/18 03/03/18 03:02 03:02 WBC 9.9 Hgb 17.9 H D Hct 52.3 H Plt Count 226 Sodium 139 Potassium 3.8 Chloride 105 Carbon Dioxide 23 BUN 16 Creatinine 1.08 Glucose 144 H Calcium 9.3 Short CBC 03/03/18 Range/Units 03:02 WBC 9.9 (4.3-11.1) K/mcL Hgb 17.9 H D (12.9-16.9) g/dL Hct 52.3 H (37.5-50.1) % Plt Count 226 (140-400) K/mcL [facility] 03/03/18 Range/Units 03:02 Sodium 139 (136-145) mEq/L Potassium 3.8 (3.5-5.1) mEq/L Chloride 105 (98-107) mEq/L Carbon Dioxide 23 (23-29) mEq/L BUN 16 (6-20) mg/dL Creatinine 1.08 (0.70-1.30) mg/dL Glucose 144 H (70-105) mg/dL Calcium 9.3 (8.6-10.3) mg/dL Impressions Echocardiogram 03/02/18 00:23 Impressions: LVEF 60%. Indeterminate diastolic function. Normal right ventricular structure and function. Mild mitral regurgitation. No pulmonary hypertension. Left Ventricular Wall Motion: Rest Echo Findings All wall segments showed normal motion. Findings: Study Quality * Technically challenging due to body habitus. ECG Findings * Atrial fibrillation. Left Ventricle * LVEF 60%. * LV wall thickness measurements not well obtained. * Indeterminate diastolic function. Right Ventricle * Normal right ventricular structure and function. Left Atrium * Normal left atrial size. Right Atrium * Normal right atrial size. Mitral Valve * Normal mitral valve structure. * No mitral stenosis. * Mild mitral regurgitation. Aortic Valve * No aortic regurgitation. * Trileaflet aortic valve. * No aortic stenosis. Tricuspid Valve * Tricuspid valve not well visualized. * Trace tricuspid regurgitation. * Estimated RA pressure is 3 mmHg. Pulmonic Valve * Pulmonic valve is not well visualized. * No pulmonic stenosis. * No pulmonic regurgitation. Pulmonary Artery * Pulmonary artery not well visualized. Aorta * Normally sized aortic root. Pericardium * There is no pericardial effusion present. Interatrial Septum * No evidence of PFO by color Doppler. IVC * Normal IVC dimensions and inspiratory collapse. Active Medications Acetaminophen (Tylenol) 650 mg PO Q6HR PRN PRN Reason: Mild Pain/Fever Stop: 09/01/18 00:24 Last Admin: 03/02/18 11:34 Dose: 650 mg Amlodipine Besylate (Norvasc) 10 mg PO DAILY [facility] Stop: 09/01/18 09:01 Last Admin: 03/03/18 08:47 Dose: 10 mg Amoxicillin (Amoxil) 500 mg PO TID [facility]; Protocol Stop: 03/08/18 10:00 Last Admin: 03/03/18 08:47 Dose: 500 mg Apixaban (Eliquis) 5 mg PO BID [facility] Stop: 09/01/18 21:01 Last Admin: 03/03/18 08:47 Dose: 5 mg Aspirin (Aspirin Ec) 81 mg PO DAILY [facility] Stop: 09/01/18 09:01 Last Admin: 03/03/18 08:47 Dose: 81 mg Atorvastatin Calcium (Lipitor) 40 mg PO HS [facility] Stop: 09/01/18 21:01 Last Admin: 03/02/18 21:13 Dose: 40 mg Dextrose/Water (Dextrose 50% (Syg)) 25 ml IVP AD PRN PRN Reason: Hypoglycemia Stop: 09/01/18 00:24 Glucagon (Glucagen) 1 mg IM ONCE PRN PRN Reason: Hypoglycemia Stop: 09/01/18 00:24 Glucose (Gluctose) 15 gm PO ONCE PRN PRN Reason: Hypoglycemia Stop: 09/01/18 00:24 Glucose (Gluctose) 30 gm PO ONCE PRN PRN Reason: Hypoglycemia Stop: 09/01/18 00:24 Dextrose (Dextrose 5%) 1,000 mls @ 100 mls/hr IVC .Q10H PRN PRN Reason: HYPOGLYCEMIA Stop: 09/01/18 00:24 Insulin Human Lispro (Humalog) 0 units SQ TIDAC [facility]; Protocol Stop: 09/01/18 07:31 Last Admin: 03/03/18 09:04 Dose: 2 units Lisinopril (Zestril) 40 mg PO DAILY [facility] Stop: 09/01/18 09:01 Last Admin: 03/03/18 08:48 Dose: 40 mg Melatonin (Melatonin) 3 mg PO HS PRN PRN Reason: Insomnia Stop: 09/01/18 12:59 Metoprolol Tartrate (Lopressor) 5 mg IVP Q5MIN PRN PRN Reason: Tachycardia HR>100 Stop: 03/03/18 19:46 Last Admin: 03/01/18 19:50 Dose: 5 mg Metoprolol Tartrate (Lopressor) 50 mg PO BID [facility] Stop: 09/01/18 21:01 Last Admin: 03/03/18 08:47 Dose: 50 mg Naloxone HCl (Narcan) 0.4 mg IVP Q2MIN PRN PRN Reason: SEE COMMENTS Stop: 09/01/18 00:24 - Imaging and Cardiology Echo: report reviewed - EKG Interpretation EKG results cardiology: other (12 hr tele AVG HR 83, A-Fib.) Consult Discharge Plan - Plan Referrals: Alfredo Au MD [Non-Partnered Physician] - Clarisse Amaya CNP [Primary Care Provider] -
[2018-03-03 11:15] VITALS: BP 145/74
== END 2018-03-03 13:14 | disposition home or self-care (01) ==
LOC: 2ANU 19:17 → EMEROOARM 19:17 → SUATTDRO 20:49 → 2ANU 21:13
PROVIDERS: ADMIT Pediatrics; ATTEND Internal Medicine